=== PATIENT | female | born 1990 | race Two or more races ===

== ENCOUNTER 2019-03-09 14:00 | Outpatient (CLI) | payer BC | END 2019-03-09 23:59 | disposition home or self-care (01) | LOC: LAB 14:00 | PROVIDERS: ATTEND Nurse Practitioner Acute Care | DX: N94.89 Other specified conditions associated with female genital organs and menstrual cycle (principal); R10.9 Unspecified abdominal pain | CPT/HCPCS: 36415; 84702-TC ==

== ENCOUNTER 2019-09-09 14:34 | Emergency (ER) | payer BC ==
[~2019-09-09] VITALS: Ht 149.9 cm; Wt 60.3 kg
--- NOTE | 2019-09-09 14:52 | NUR ---
PT CAME INTO THE ED C/O VERTIGO SINCE 2 AM. -[place]. LAYING FLAT WORSENS IT. PT AAOX4, VSS, BREATHING EVEN AND UNLABORED ON ROOM AIR, AMBULATORY.
[2019-09-09] MEDS ORDERED: MECLIZINE HCL 25 MG TABLET ONE (15:10)
[2019-09-09] MEDS ORDERED: MECLIZINE HCL 25 MG TABLET PO ONE (15:30)
[2019-09-09 16:13] VITALS: BP 142/84
--- NOTE | 2019-09-09 16:13 | NUR ---
Patient discharged to home in stable condition. Written and verbal after care instructions given. Patient verbalizes understanding of instruction.
== END 2019-09-09 16:14 | disposition home or self-care (01) ==
LOC: ER 14:35
DX: H81.10 Benign paroxysmal vertigo, unspecified ear (principal); Z98.890 Other specified postprocedural states
CPT/HCPCS: 99282; J8597